=== PATIENT | female | born 1980 | race Caucasian/White ===

== ENCOUNTER 2017-01-22 14:16 | Inpatient (IN) | payer MEDICAID ==
[~2017-01-22] VITALS: Ht 157.5 cm; Wt 63.5 kg
[~2017-01-22 14:16] MED LIST: LEVO137T20 PO
[2017-01-22 14:25] VITALS: BP 129/93; PULSE 92; RESP 18; TEMP 98; O2SAT 99
--- NOTE | 2017-01-22 14:25 | NUR ---
Patient to ER bed 08 to gown for evaluation. Side rails up. Report given to Annette
[2017-01-22] MEDS ORDERED: NACL 0.9% 1,000 ML IV ONE ×2 (14:31→16:45)
--- NOTE | 2017-01-22 14:36 | NUR ---
c/o abdominal pain, nausea,vomiting,diarrhea since last night. AAOx4,no apparent distress.
--- NOTE | 2017-01-22 14:37 | NUR ---
ER at bedside examining patient.
[2017-01-22] MEDS ORDERED: MORPHINE 2 MG/ML INJ. SYRINGE IVP ONE (14:45)
[2017-01-22] MEDS ORDERED: ONDANSETRON HCL 4 MG/2 ML VIAL IVP ONE ×3 (14:45→16:45)
--- NOTE | 2017-01-22 15:05 | NUR ---
Pt has redness and itching on R arm after morphine administration, Dr Ferrell notified, per Contreras will place order for benadryl.
[2017-01-22] MEDS ORDERED: HYDROCORTISONE 10 MG TABLET (CORTEF) PO ONE (15:15)
[2017-01-22] MEDS ORDERED: DIPHENHYDRAMINE INJ 50 MG/ML VIAL IVP ONE (15:15)
[2017-01-22 15:16] LABS: BILIRUBIN,URINE 1+ (NEGATIVE); BLOOD, URINE NEGATIVE (NEGATIVE); CLARITY/URINE SL CLOUDY (CLEAR); COLOR,URINE YELLOW (YELLOW); GLUCOSE,URINE NEGATIVE (NEGATIVE); KETONES,URINE TRACE (NEGATIVE); LEUKOCYTE ESTERASE ,URINE NEGATIVE (NEGATIVE); NITRITE, URINE NEGATIVE (NEGATIVE); PH,URINE 5.5 (5.0-8.0); PROTEIN URINE 1+ (NEGATIVE)
[2017-01-22 15:25] LABS: BASOPHILS # (AUTO) 0.2 K/uL (0.0-0.2); BASOPHILS % (AUTO) 1.5 % (0.0-2.0); EOSINOPHILS # (AUTO) 0.1 K/uL (0.0-0.4); HEMATOCRIT 43.7 % (36-48); HEMOGLOBIN 14.9 g/dL (12.0-16.0); LYMPHOCYTES # (AUTO) 1.8 K/uL (1.0-5.5); LYMPHOCYTES % (AUTO) 18.1 % (20.5-51.5); MEAN CORPUSCULAR HEMOGLOBIN 30 pg (27-31); MEAN CORPUSCULAR HGB CONC 34 % (32-36); MEAN CORPUSCULAR VOLUME 88 fL (79.0-98.0); MONOCYTES # (AUTO) 0.6 K/uL (0.0-1.0); NEUTROPHILS # (AUTO) 7.5 K/uL (1.8-7.7); NEUTROPHILS % (AUTO) 73.4 % (40.0-70.0); PLATELET COUNT (AUTO) 232 K/uL (130-430); RED BLOOD CELL COUNT(AUTO) 4.96 MIL/uL (4.2-6.2); RED CELL DISTRIBUTION WIDTH 12.6 % (9.0-15.0); WHITE BLOOD COUNT (AUTO) 10.2 K/uL (4.8-10.8)
--- NOTE | 2017-01-22 15:30 | NUR ---
Patient on gurney C/O nausea. No signs of acute distress.
[2017-01-22 15:31] LABS: BACTERIA,URINE FEW /HPF (None Seen); CALCIUM OXALATE CRYSTALS,UR 0-10 /HPF (None Seen); MUCUS,URINE 1+ /LPF (None Seen); RBC,URINE 0-3 /HPF (0-3); WBC,URINE 0-3 /HPF (0-3)
[2017-01-22 15:36] LABS: PROTHROMBIN TIME 10.5 SECS (9.5-12.5)
[2017-01-22 15:46] LABS: CALCIUM 8.7 mg/dL (8.4-11.0); CREATININE 1.13 mg/dL (0.55-1.30)
[2017-01-22 15:48] LABS: POTASSIUM 4.5 mmol/L (3.5-5.1)
[2017-01-22 15:50] LABS: TOTAL BILIRUBIN 0.5 mg/dL (0.0-1.0); TOTAL PROTEIN, SERUM 6.5 g/dL (6.4-8.3)
[2017-01-22 15:51] LABS: ALBUMIN 3.5 g/dL (3.4-4.8)
--- NOTE | 2017-01-22 16:40 | NUR ---
Patient calm, no signs of distres. IV patent no signs of infiltration
[2017-01-22] MEDS ORDERED: HYDROmorphone 1 MG INJ. 1 MG/ML AMPUL IVP ONE (16:45)
[2017-01-22] MEDS ORDERED: HYDROCORTISONE SOD SUCC 100 MG/2 ML VIAL IVP ONE (16:45)
[2017-01-22 17:59] LABS: BARBITURATE, URINE NEGATIVE (NEG <=200); BENZODIAZEPINE, URINE NEGATIVE (NEG <=150); CANNABINOID, URINE NEGATIVE (NEG <=50); COCAINE, URINE NEGATIVE (NEG <=150); METHAMPHETAMINES SCREEN,URINE NEGATIVE (NEG <=500); OPIATE, URINE POSITIVE (NEG <=100); PHENCYCLIDINE SCREEN,URINE NEGATIVE (NEG <=25); UR TRICYCLIC ANTIDEPRESSANTS NEGATIVE (NEG <=300); URINE AMPHETAMINE NEGATIVE (NEG <=500); URINE METHADONE NEGATIVE (NEG <=200); URINE OXYCODONE SCREEN NEGATIVE (NEG <=100); URINE PROPOXYPHENE SCREEN NEGATIVE (NEG <=300)
--- NOTE | 2017-01-22 18:35 | NUR ---
Patient will be admitted to care of DR KRISHNA. Admitted to [facility] IN unit. Will go to room 135. Belongings list completed. Summary report printed. Report given to ANGELIQUE.
--- NOTE | 2017-01-22 18:42 | NUR ---
Transfer to [facility]. IV present no sign or symptom of infiltration.
[2017-01-22 19:13] VITALS: BP 116/70; PULSE 67; RESP 20; TEMP 97.7; O2SAT 96
--- NOTE | 2017-01-22 19:15 | NUR ---
ADMISSION NOTE Received patient from ER via gurney. Patient admitted with diagnosis of acute gastroenteritis. Patient is awake, alert, oriented X 4. Patient oriented to hospital room, call light, toileting, pain management and safety-teach back done. Patient informed that Silas will be her nurse and that their room number is [id number]. Personal belongings checked and Belongings List documented. Call light within reach.
--- NOTE | 2017-01-22 19:20 | NUR ---
INITIAL ASSESSMENT: RECEIVE PT IN BED, PT AWAKE, ALERT AND ORIENTED, ON ROOM AIR, BREATHING EVEN AND NON LABORED, CHEST CLEAR, ABDOMEN SOFT AND NON DISTENDED, PT COMPLAINT OF ABDOMINAL PAIN, TOLERABLE AT THIS TIME, DENIES ANY NAUSEA AND VOMITING AT THIS TIME. VITAL STABLE, IV ON RIGHT FOREARM 20 G, STARTED IVF D51/2NS@ 125 CC/HR, INFUSING WELL, NO INFILTRATION NOTED, PT ABLE TO WALK TO BATHROOM WITH STEADY GAIT, PLAN OF CARE DISCUSSED WITH PT AND VERBALIZED UNDERSTANDING, CALL LIGHT WITH IN REACH, SAFETY MEASURES IN PLACE, BED IN LOW POSITION AND LOCKED, WILL CONTINUE TO MONITOR.
[2017-01-22 19:40] VITALS: BP 116/70; PULSE 67; RESP 20; TEMP 97.6; TEMP 97.7; O2SAT 96
[2017-01-22] MEDS: KCL 20 mEq in D5/0.45NS 1000mL 1,000 ML IV SCH (19:52)
--- NOTE | 2017-01-22 20:30 | NUR ---
PAIN/PAGED DR KRISHNA: PT AWAKE, ALERT AND ORIENTED, ON ROOM AIR, BREATHING EVEN AND NON LABORED, PT COMPLAINT OF ABDOMINAL PAIN, 05/21, PAGED DR KRISHNA, SPOKE WITH MD, DR KRISHNA STATED HE WILL COME SEE PT TONIGHT, C/O NAUSEA AND NO VOMITING AT THIS TIME. VITAL STABLE, IV ON RIGHT FOREARM 20 G, INFUSING D51/2NS@ 125 CC/HR, INFUSING WELL, NO INFILTRATION NOTED, CALL LIGHT WITH IN REACH, SAFETY MEASURES IN PLACE, BED IN LOW POSITION AND LOCKED, WILL CONTINUE TO MONITOR.
[2017-01-22] MEDS ORDERED: ALPRAZolam 0.25 MG TABLET PO PRN (20:45)
[2017-01-22] MEDS ORDERED: ACETAMINOPHEN 325 MG TABLET PO PRN (20:45)
[2017-01-22] MEDS: ONDANSETRON HCL 4 MG/2 ML VIAL IVP PRN (21:17)
[2017-01-22] MEDS: HYDROmorphone 1 MG INJ. 1 MG/ML AMPUL IVP PRN (21:18)
[2017-01-22] MEDS: PANTOPRAZOLE SODIUM 40 MG/VIAL (PROTONIX) IVP SCH (21:18)
--- NOTE | 2017-01-22 21:18 | NUR ---
DR KRISHNA MADE ROUND AND NEW ORDER RECEIVED: PT AWAKE, ALERT AND ORIENTED, ON ROOM AIR, BREATHING EVEN AND NON LABORED, PT COMPLAINT OF ABDOMINAL PAIN, 05/21, ADMINISTERED DILAUDID 1 MG IVP AND C/O NAUSEA AND ADMINISTERED ZOFRAN 4 MG IVP ADMINISTERED. VITAL STABLE, IV ON RIGHT FOREARM 20 G, INFUSING D51/2NS@ 125 CC/HR, INFUSING WELL, NO INFILTRATION NOTED, CALL LIGHT WITH IN REACH, SAFETY MEASURES IN PLACE, BED IN LOW POSITION AND LOCKED, WILL CONTINUE TO MONITOR.
--- NOTE | 2017-01-22 23:17 | NUR ---
RN ROUND: PT SLEEPING, EASILY AWAKE. ON ROOM AIR, BREATHING EVEN AND NON LABORED, NO C/O ABDOMINAL PAIN, NO C/O NAUSEA AND NO VOMITING AT THIS TIME. VITAL STABLE, IV ON RIGHT FOREARM 20 G, INFUSING D51/2NS@ 125 CC/HR, INFUSING WELL, NO INFILTRATION NOTED, CALL LIGHT WITH IN REACH, SAFETY MEASURES IN PLACE, BED IN LOW POSITION AND LOCKED, WILL CONTINUE TO MONITOR.
[2017-01-23] VITALS: BP 110/74; PULSE 81; RESP 18; TEMP 97.9; O2SAT 95
[2017-01-23] MEDS: HYDROmorphone 1 MG INJ. 1 MG/ML AMPUL IVP PRN ×2 (02:40→10:43)
--- NOTE | 2017-01-23 02:40 | NUR ---
ROUND:: PT AWAKE. ON ROOM AIR, BREATHING EVEN AND NON LABORED, C/O ABDOMINAL PAIN 05/21, ADMINISTERED DILAUDID 1 MG IVP, WILL REASSESS. NO C/O NAUSEA AND NO VOMITING AT THIS TIME. VITAL STABLE, IV ON RIGHT FOREARM 20 G, INFUSING D51/2NS@ 125 CC/HR, INFUSING WELL, NO INFILTRATION NOTED, CALL LIGHT WITH IN REACH, SAFETY MEASURES IN PLACE, BED IN LOW POSITION AND LOCKED, WILL CONTINUE TO MONITOR.
[2017-01-23] MEDS: KCL 20 mEq in D5/0.45NS 1000mL 1,000 ML IV SCH ×2 (03:37→10:43)
[2017-01-23] MEDS: ONDANSETRON HCL 4 MG/2 ML VIAL IVP PRN ×2 (03:37→10:43)
[2017-01-23 04:00] VITALS: BP 112/71; PULSE 66; RESP 20; TEMP 98.3; O2SAT 96
--- NOTE | 2017-01-23 04:50 | NUR ---
NOTE: PT AWAKE. ON ROOM AIR, BREATHING EVEN AND NON LABORED, NO C/O ABDOMINAL PAIN, NO C/O NAUSEA AND NO VOMITING AT THIS TIME. VITAL STABLE, IV ON RIGHT FOREARM 20 G, INFUSING D51/2NS@ 125 CC/HR, INFUSING WELL, NO INFILTRATION NOTED, CALL LIGHT WITH IN REACH, SAFETY MEASURES IN PLACE, BED IN LOW POSITION AND LOCKED, WILL CONTINUE TO MONITOR.
[2017-01-23 07:10] LABS: CALCIUM 8.1 mg/dL (8.4-11.0); CREATININE 0.74 mg/dL (0.55-1.30); PHOSPHORUS 2.8 mg/dL (2.7-4.5); POTASSIUM 3.8 mmol/L (3.5-5.1)
[2017-01-23 07:11] LABS: BASOPHILS # (AUTO) 0.2 K/uL (0.0-0.2); EOSINOPHILS # (AUTO) 0.2 K/uL (0.0-0.4); EOSINOPHILS % (AUTO) 1.6 % (0.0-4.0); HEMOGLOBIN 13.8 g/dL (12.0-16.0); LYMPHOCYTES # (AUTO) 2.7 K/uL (1.0-5.5); MEAN CORPUSCULAR HEMOGLOBIN 30 pg (27-31); MEAN CORPUSCULAR HGB CONC 34 % (32-36); MEAN CORPUSCULAR VOLUME 89 fL (79.0-98.0); MONOCYTES # (AUTO) 0.9 K/uL (0.0-1.0); MONOCYTES % (AUTO) 8.4 % (1.7-9.3); NEUTROPHILS # (AUTO) 6.3 K/uL (1.8-7.7); PLATELET COUNT (AUTO) 188 K/uL (130-430); RED BLOOD CELL COUNT(AUTO) 4.61 MIL/uL (4.2-6.2); RED CELL DISTRIBUTION WIDTH 12.3 % (9.0-15.0); WHITE BLOOD COUNT (AUTO) 10.3 K/uL (4.8-10.8)
--- NOTE | 2017-01-23 07:44 | NUR ---
REPORT GIVEN TO JAH MERINO. PT STABLE AND NO DISTRESS.
--- NOTE | 2017-01-23 07:51 | NUR ---
AM Rounds: Received pt sitting semi-fowlers in bed. No acute signs of distress noted. Pt denies pain. Fall precautions in place. IV intact and infusing fluids well. Call light in reach. Continue to monitor.
[2017-01-23 08:30] VITALS: BP 111/67; PULSE 59; RESP 12; TEMP 96.8; O2SAT 99
[2017-01-23] MEDS: PANTOPRAZOLE SODIUM 40 MG/VIAL (PROTONIX) IVP SCH (08:40)
[2017-01-23] MEDS ORDERED: LEVOTHYROXINE SODIUM 0.137 MG TABLET PO SCH ×2 (09:00→17:24)
[2017-01-23] MEDS ORDERED: HYDROCORTISONE 10 MG TABLET (CORTEF) PO SCH ×2 (09:00→18:00)
--- NOTE | 2017-01-23 09:00 | NUR ---
RN Rounds: AM meds given per MD order. Pt tolerates well at this time. Pt denies pain. IV intact to RUE with no redness or swelling noted to site. No diarrhea per patient. Call light in reach. Continue to monitor pt closely.
[2017-01-23 11:34] VITALS: BP 113/79; PULSE 76; RESP 19; TEMP 97.8; O2SAT 97
--- NOTE | 2017-01-23 11:47 | NUR ---
Rounds: Pt sitting semi-fowlers in bed. Pt denies pain. No nausea or vomiting noted. Pt denies diarrhea today. Call light in reach. Pt is able to make needs known. No other needs noted at this time. Continue to monitor pt closely.
--- NOTE | 2017-01-23 13:39 | NUR ---
Rounds: Pt sitting semi-fowlers in bed. No acute signs of distress noted. IV intact to RUE with no redness or swelling noted to site. Call light in reach. Continue to monitor.
[2017-01-23] MEDS ORDERED: ONDA4TAB22 PO (14:39)
--- NOTE | 2017-01-23 14:50 | NUR ---
D/C Patient Patient given medication reconciliation form and D/C instructions. Exit Care provided. Patient verbalized understanding. MD discussed with patient the results and treatment provided. Ambulatory with steady gait for discharge to home. Patient in stable condition, ID band removed. IV catheter removed, intact and dressing applied, no active bleeding. Rx given. Per patient, no one to call in orer to inform that she is being discharged. Patient educated on pain management. All belongings sent with patient.
[2017-01-23 15:42] VITALS: BP 116/75; PULSE 52; RESP 17; TEMP 97.6; O2SAT 100
== END 2017-01-23 17:50 | disposition home or self-care (01) | DRG 249 ==
LOC: SED 14:16 → SMU 18:37
PROVIDERS: ADMIT Family Medicine; ATTEND Family Medicine
DX: K52.9 Noninfective gastroenteritis and colitis, unspecified (principal); E27.1 Primary adrenocortical insufficiency; E03.9 Hypothyroidism, unspecified; F41.9 Anxiety disorder, unspecified; M81.0 Age-related osteoporosis without current pathological fracture; M19.90 Unspecified osteoarthritis, unspecified site; Z88.8 Allergy status to other drugs, medicaments and biological substances; Z79.899 Other long term (current) drug therapy
CPT/HCPCS: 36415; 80048; 80053; 80307; 81000-TC; 81025; 83690-TC; 83735-TC; 84100-TC; 84484; 85025; 85610-TC; 85730-TC; 93005; 96361; 96374; 96375; 96376; 99285; C9113; J1170; J1200; J1720; J2270; J2405; J7030